=== PATIENT | male | born 1950 | race Caucasian/White ===

== ENCOUNTER 2019-06-02 09:39 | Emergency (ER) | payer MEDICARE ==
[2019-06-02] MEDS ORDERED: TRANEXAMIC ACID INJ/PF 1,000 MG/10 ML SDV IV ONE ×2 (09:44→09:48)
[2019-06-02] MEDS ORDERED: LIDOCAINE 1%/EPINEPHRINE INJ 20 ML VIAL ONE (09:44)
[2019-06-02] MEDS ORDERED: ONDANSETRON HCL INJ/PF 4 MG/2 ML SDV ONE (09:44)
[2019-06-02] MEDS: NORMAL SALINE 1000 ML 1,000 ML IV PRN ×2 (09:48→11:48)
--- NOTE | 2019-06-02 10:10 | ER Document Report ---
ED General - General Stated Complaint: HEMORRHAGE Time Seen by Provider: 06/02/19 10:00 Primary Care Provider: CLINT ROBERTO DPM [ACTIVE STAFF] - Follow up as needed TRAVEL OUTSIDE OF THE [place] IN LAST 30 DAYS: No - HPI Notes: Patient is a 69-year-old gentleman, with a history of atrial fibrillation on Eliquis, as well as varicose veins, who presents to the emergency department for evaluation of bleeding. He states he was getting out of the bathtub when he started having significant bleeding from his left ankle. He does not think he actually injured it, believes it may have just spontaneously began bleeding. He denies any pain of any sort. No chest pain or difficulty breathing. No dizzine ss. Prior to arrival, combat gauze and pressure dressing were placed, and a tourniquet was placed by EMS. He continues to bleed. Past Medical History - General Information source: Patient - Social History Smoking Status: Never Smoker Family History: Reviewed & Not Pertinent - Past Medical History Cardiac Medical History: Reports: Hx Atrial Fibrillation Review of Systems - Review of Systems Constitutional: No symptoms reported EENT: No symptoms reported Cardiovascular: No symptoms reported Respiratory: No symptoms reported Gastrointestinal: No symptoms reported Genitourinary: No symptoms reported Musculoskeletal: No symptoms reported Skin: See HPI Hematologic/Lymphatic: See HPI Physical Exam - Vital signs Vitals: Resp BP Pulse Ox 13 155/96 H 94 06/02/19 09:49 06/02/19 09:49 06/02/19 09:49 - Notes Notes: Is a pleasant 69-year-old male who appears his stated age. He is mildly pale and slightly diaphoretic. Is neuropsych any traumatic. Pupils are equal round, reactive to light. Oral mucosa is moist. Heart is irregularly irregular, lungs are clear to oscillation bilaterally. Abdomen is obese with ventral hernia, soft and nontender. Examination of left lower extremity yields moderate varicosities. On the medial aspect of the left ankle, overlying the anterior aspect of the medial malleolus, is in a proximally 4 mm open area consistent with bleeding varicosity. Tourniquet is in place upon arrival. He does have significant vascular congestion as a result, as well as diminished, but still palpable, dorsalis pedis pulse. Incision intact beyond tourniquet. Course - Re-evaluation Re-evalutation: 06/02/19 10:10 Patient presents emergency department for evaluation. Upon arrival the bandage was taken down, tourniquet left in place. The patient still had a significant amount of bleeding from this varicosity. The area was cleansed, it was then treated with both subcutaneous and topical lidocaine with epinephrine, as well as subcutaneous and topical tranexamic acid. More combat gauze was placed, as well as compression dressing. Over the next several minutes tourniquet pressure was released. Bandages remain in place at this time, but there is no bleedthrough currently. We will continue to monitor. 06/02/19 13:43 Patient was able to walk around the department without significant difficulty and bleeding entirely resolved. We will send him home with close follow-up. - Vital Signs Vital signs: Temp Pulse Resp BP Pulse Ox 98 F 107 H 20 113/76 98 06/02/19 13:51 06/02/19 10:20 06/02/19 13:51 06/02/19 13:51 06/02/19 13:51 - Laboratory Result Diagrams: 06/02/19 09:42 06/02/19 09:42 Laboratory results interpreted by me: 06/02/19 06/02/19 06/02/19 09:42 09:42 09:42 RDW 14.3 H PT 15.9 H Glucose 170 H Discharge - Discharge Clinical Impression: Bleeding from varicose veins of left lower extremity Condition: Stable Disposition: HOME, SELF-CARE Instructions: Varicose Veins ([facility]) Additional Instructions: Keep leg elevated as much as possible. Keep bandage in place for the next 24 hours. Remove gently. Follow-up with your primary care provider this week. You may seek out referral to vascular for further evaluation of your veins. Return to the emergency department with worsening or new concerning symptoms of any sort. Referrals: CLINT ROBERTO DPM [ACTIVE STAFF] - Follow up as needed
[2019-06-02 10:13] LABS: ABSOLUTE BASOPHILS # (AUTO) 0.1 10^3/uL (0.0-0.2); ABSOLUTE EOSINOPHILS # (AUTO) 0.2 10^3/uL (0.0-0.6); ABSOLUTE LYMPHOCYTES (AUTO) 1.8 10^3/uL (0.5-4.7); ABSOLUTE MONOCYTES (AUTO) 0.8 10^3/uL (0.1-1.4); ABSOLUTE NEUT (AUTO) 3.4 10^3/uL (1.7-8.2); BASOPHILS % (AUTO) 1.1 % (0-2); EOSINOPHILS % (AUTO) 2.5 % (0-6); HEMATOCRIT 43.1 % (37.9-51.0); HEMOGLOBIN 14.9 g/dL (13.5-17.0); LYMPHOCYTES % (AUTO) 29.5 % (13-45); MEAN CORPUSCULAR HEMOGLOBIN 31.1 pg (27.0-33.4); MEAN CORPUSCULAR HGB CONC 34.7 g/dL (32.0-36.0); MEAN CORPUSCULAR VOLUME 90 fl (80-97); MONOCYTES % (AUTO) 12.3 % (3-13); PLATELET COUNT 214 10^3/uL (150-450); RED BLOOD COUNT 4.79 10^6/uL (4.35-5.55); RED CELL DISTRIBUTION WIDTH 14.3 % (11.5-14.0); SEGMENTED NEUTROPHILS % (AUTO) 54.6 % (42-78); TOTAL CELLS COUNTED % (AUTO) 100 %; WHITE BLOOD COUNT 6.1 10^3/uL (4.0-10.5)
[2019-06-02 10:21] LABS: INTERNATIONAL RATION (INR) 1.26; PROTHROMBIN TIME 15.9 SEC (11.4-15.4)
[2019-06-02 10:22] LABS: PARTIAL THROMBOPLASTIN TIME 28.5 SEC (23.5-35.8)
[2019-06-02 10:28] LABS: ALBUMIN 4.3 g/dL (3.5-5.0); ALKALINE PHOSPHATASE 72 U/L (38-126); ANION GAP 12 (5-19); ASPARTATE AMINO TRANSFERASE 31 U/L (17-59); BILIRUBIN,DIRECT 0.1 mg/dL (0.0-0.4); BILIRUBIN,TOTAL 0.7 mg/dL (0.2-1.3); BLOOD UREA NITROGEN 19 mg/dL (7-20); CALCIUM 9.3 mg/dL (8.4-10.2); CARBON DIOXIDE 26 mmol/L (22-30); CHLORIDE 101 mmol/L (98-107); GLUCOSE 170 mg/dL (75-110); POTASSIUM 3.7 mmol/L (3.6-5.0); TOTAL PROTEIN 6.9 g/dL (6.3-8.2)
[2019-06-02] MEDS ORDERED: ONDANSETRON HCL INJ/PF 4 MG/2 ML SDV IV ONE (11:05)
[2019-06-02] MEDS ORDERED: LIDOCAINE 2%/EPINEPHRINE INJ 20 ML VIAL INJ ONE (11:08)
[2019-06-02 14:00] VITALS: BP 113/76
== END 2019-06-02 14:00 | disposition home or self-care (01) ==
LOC: ER 09:39
DX: I83.892 Varicose veins of left lower extremity with other complications (principal); I48.91 Unspecified atrial fibrillation; Z79.02 Long term (current) use of antithrombotics/antiplatelets
CPT/HCPCS: 99283; 96361; 96374; 96375; 36415; 85025; 85610; 85730; 80053; J2405; J7030; J3490